=== PATIENT | female | born 1960 | race American Indian/Alaskan Native ===

== ENCOUNTER 2022-08-09 15:30 | Outpatient (CLI) | payer OTHER | END 2022-08-09 15:50 | disposition home or self-care (01) | LOC: PPH VACUNA 15:30 | PROVIDERS: ATTEND Emergency Medicine Pediatric Emergency Medicine | DX: Z23 Encounter for immunization (principal) ==

== ENCOUNTER 2024-06-01 13:13 | Emergency (ER) | payer OTHER ==
[~2024-06-01] VITALS: Ht 160 cm; Wt 83.9 kg
[2024-06-01] MEDS ORDERED: SYMBICORT 16010.2 GM IH (14:01)
[2024-06-01] MEDS ORDERED: PREDNISONE10 MG (14:01)
[2024-06-01] MEDS ORDERED: IPRATROPIUM BRO30 ML NS (14:01)
[2024-06-01] MEDS ORDERED: SIMVASTATIN5 MG PO (14:02)
[2024-06-01] MEDS ORDERED: TOPROL XL50 M1 PO (14:02)
[2024-06-01] MEDS ORDERED: SINGULAIR10 MG PO (14:02)
[2024-06-01] MEDS ORDERED: NEXIUM40 M1 PO (14:03)
[2024-06-01] MEDS ORDERED: ATACAND4 MG PO (14:03)
[2024-06-01] MEDS ORDERED: SYNTHROID75 MCG PO (14:03)
[2024-06-01] MEDS ORDERED: ZETIA10 MG PO (14:03)
[2024-06-01] MEDS ORDERED: FLONASE SENSIM5.9 ML NS (14:04)
[2024-06-01 14:50] LABS: HEMATOCRIT 38.9 % (36.0-45.00); HEMOGLOBIN 13.1 g/dL (12.0-15.00); MEAN CELL VOLUME 90.9 fL (80.00-100.00); MEAN CORPUSCULAR HEMOGLOBIN 30.6 pg (27.00-32.0); MEAN CORPUSCULAR HGB CONC 33.7 g/dl (32.0-36.0); PLATELET COUNT 219 K/uL (150-450); RED BLOOD COUNT 4.28 M/uL (4.00-6.00)
[2024-06-01 15:34] LABS: URINE APPEARANCE Cloudy; URINE BILIRRUBIN Negative (NEGATIVE); URINE BLOOD Large; URINE COLOR Yellow; URINE GLUCOSE Negative (NEGATIVE); URINE LEUKOCYTE Moderate; URINE NITRATE Positive; URINE UROBILINOGEN 0.2 E.U./dl
[2024-06-01 15:37] LABS: URINE EPITHELIAL CELLS 21.6 uL (0.0-38.8); URINE RBC 182.9 uL (0.0-20.8)
[2024-06-01 16:23] LABS: URINE BACTERIA > 9821.5 uL (0.0-1933); URINE PROTEIN 100 (NEGATIVE)
[2024-06-01] MEDS ORDERED: AMOX1TAB5 PO (17:20)
[2024-06-02] MEDS ORDERED: AMOX1TAB5 PO (11:35)
== END 2024-06-01 17:38 | disposition home or self-care (01) ==
LOC: ER 13:14
PROVIDERS: General Practice
DX: J44.1 Chronic obstructive pulmonary disease with (acute) exacerbation (principal); N39.0 Urinary tract infection, site not specified; Z20.822 Contact with and (suspected) exposure to COVID-19; Z88.5 Allergy status to narcotic agent; Z88.9 Allergy status to unspecified drugs, medicaments and biological substances

== ENCOUNTER 2025-01-26 19:27 | Emergency (ER) | payer OTHER ==
[~2025-01-26] VITALS: Ht 160 cm; Wt 78.9 kg
[~2025-01-26 19:27] MED LIST: AMOX1TAB5 PO; ATACAND4 MG PO; FLONASE SENSIM5.9 ML NS; IPRATROPIUM BRO30 ML NS; NEXIUM40 M1 PO; PREDNISONE10 MG; SIMVASTATIN5 MG PO; SINGULAIR10 MG PO; SYMBICORT 16010.2 GM IH; SYNTHROID75 MCG PO; TOPROL XL50 M1 PO; ZETIA10 MG PO
[2025-01-26] MEDS ORDERED: CYMBALTA60 MG PO (19:34)
[2025-01-26] MEDS ORDERED: MAGNESIUM SULFATE IN WATER 4 GM/100 ML PIGGYBACK IV STA (20:34)
[2025-01-26] MEDS ORDERED: LEVALBUTEROL HCL 1.25 MG/3 ML SOLUTION IH SCH (20:45)
[2025-01-26 21:09] LABS: HEMATOCRIT 38.7 % (36.0-45.00); MEAN CELL VOLUME 89.1 fL (80.00-100.00); MEAN CORPUSCULAR HEMOGLOBIN 30.1 pg (27.00-32.0); MEAN CORPUSCULAR HGB CONC 33.7 g/dl (32.0-36.0); PLATELET COUNT 229 K/uL (150-450); RED BLOOD COUNT 4.34 M/uL (4.00-6.00); RED CELL DISTRIBUTION WIDTH 13.7 % (11.5-14.5)
[2025-01-26] MEDS ORDERED: LEVALBUTEROL HCL 1.25 MG/3 ML SOLUTION IH ONE ×2 (21:25→23:50)
[2025-01-26] MEDS ORDERED: CEFTRIAXONE SODIUM 1,000 MG VIAL IM STA (22:46)
[2025-01-26] MEDS ORDERED: CEFTRIAXONE SODIUM 1,000 MG VIAL ONE (23:05)
== END 2025-01-26 23:56 | disposition home or self-care (01) ==
LOC: ER 19:29
DX: J44.1 Chronic obstructive pulmonary disease with (acute) exacerbation (principal); J45.998 Other asthma; Z88.8 Allergy status to other drugs, medicaments and biological substances; Z20.822 Contact with and (suspected) exposure to COVID-19
CPT/HCPCS: 36415; 71045; 94640; 96365; 96372; 99284; J0696; J3475